=== PATIENT | female | born 1995 | race Two or more races ===

== ENCOUNTER 2020-01-15 19:18 | Inpatient (IN) | payer OTHER ==
[~2020-01-15] VITALS: Ht 162.6 cm; Wt 129.7 kg
[2020-01-16] MEDS ORDERED: PRENATAL + DHA1 EAC1 PO (08:52)
== END 2020-01-19 12:27 | disposition home or self-care (01) | DRG 788 ==
LOC: LDR 19:18 → OB/GYN 01-16 17:34
PROVIDERS: ADMIT Obstetrics & Gynecology; ATTEND Obstetrics & Gynecology
PROC: 4A0HXFZ Measurement of Products of Conception, Cardiac Rhythm, External Approach (ICD-10-PCS; 2020-01-15)
PROC: 10D00Z1 Extraction of Products of Conception, Low, Open Approach (ICD-10-PCS; principal; 2020-01-16 14:00)
DX: O62.1 Secondary uterine inertia (principal); O82 Encounter for cesarean delivery without indication; Z3A.39 39 weeks gestation of pregnancy; Z37.0 Single live birth